=== PATIENT | female | born 1985 | race American Indian/Alaskan Native ===

== ENCOUNTER 2019-04-07 02:32 | Emergency (ER) | payer SELFPAY ==
--- NOTE | 2019-04-07 03:09 | XRay Report ---
PROCEDURE: XR WRIST 3+V LT TECHNIQUE: 3 views of the left wrist were submitted. HISTORY: left wrist pain/injury COMPARISONS: None FINDINGS: There is no evidence of acute fracture or soft tissue injury. There is no evidence of arthritic gale es. IMPRESSION: No acute findings. If localized wrist pain persists, repeat imaging is recommended in 7-10 days to ev aluate for occult fracture.. This document is electronically signed by Jose De Jesus Jacinto MD., April 07 2019 03:07:27 AM ET
[2019-04-07] MEDS ORDERED: IBUPROFEN PO ONE (07:12)
[2019-04-07] MEDS ORDERED: NORCO 5/325 PO ONE (07:36)
--- NOTE | 2019-04-07 07:48 | Emergency Department Report ---
ED Back Pain/Injury HPI - General Chief Complaint: Extremity Injury, Upper Stated Complaint: LT WRIST INJURY Time Seen by Provider: 04/07/19 07:11 Source: patient Limitations: No Limitations - History of Present Illness Initial Comments: Patient is a 34-year-old female who comes to the ER complaining of left wrist pain. She fell last night on an outstretched left hand. She is neurovascularly intact on assessment. Patient denies any medical problems and is on no home medications. - Related Data Previous Rx's Medication Instructions Recorded Last Taken Type traMADol [Ultram] 50 mg PO Q6HR PRN #10 tablet 04/07/19 Unknown Rx Allergies Allergy/AdvReac Type Severity Reaction Status Date / Time No Known Allergies Allergy Unverified 04/07/19 02:33 ED Review of Systems ROS: Stated complaint: LT WRIST INJURY Other details as noted in HPI Comment: All other systems reviewed and negative ED Past Medical Hx - Past Medical History Medical history: no medical history ED Back Pain Physical Exam - Exam General: Vital signs noted. No distress. Alert and acting appropriately. WDWN patient in NAD VS per RN flow sheet Alert and oriented to person, place and time. S1-S2. No S3 or S4. No systolic or diastolic murmur. No JVD. No pitting edema. Lungs clear to auscultation bilaterally anteriorly and posteriorly. Abdomen soft nontender bowel sounds x4 Moves all extremities well. Mood and affect appropriate. Radial and ulnar pulses +2. Rapid capillary refill. Mild swelling of the wrist is noted. She has full range of motion but limited by pain. Forearm and fingers are without injury. There is no other associated injury. Ulnar medial and radial nerves are intact. ED Course Vital Signs 04/07/19 04/07/19 02:33 07:34 Temperature 98.1 F Pulse Rate 65 Respiratory 18 18 Rate Blood Pressure 109/67 O2 Sat by Pulse 98 Oximetry ED Medical Decision Making - Medical Decision Making X-ray is negative for fracture. Patient has been placed in an Paco bandage with an arm sling. She is being discharged home with rest ice elevation and pain medicines. She has been told to follow up with orthopedics next week. Patient is neurovascularly intact. Vital Signs 04/07/19 04/07/19 02:33 07:34 Temperature 98.1 F Pulse Rate 65 Respiratory 18 18 Rate Blood Pressure 109/67 O2 Sat by Pulse 98 Oximetry - Differential Diagnosis ro fx rad/ulna Critical care attestation.: If time is entered above; I have spent that time in minutes in the direct care of this critically ill patient, excluding procedure time. ED Disposition Clinical Impression: Left wrist sprain, Fall from ground level Disposition: DC-01 TO HOME OR SELFCARE Is pt being admited?: No Does the pt Need Aspirin: No Condition: Stable Instructions: Wrist Injury (ED) Additional Instructions: DIET TOLERATED MEDS ORDERED TODAY IN ER FOLLOW INSTRUCTIONS ON THE BOTTLE FOLLOW UP PCP WITHIN 48 HOURS TO ENSURE YOU ARE GETTING BETTER ACTIVITY TOLERATED MOTRIN OR TYLENOL FOR PAIN OR FEVER RETURN TO THE ER FOR WORSENING SYMPTOMS NOT RELIEVED BY YOUR MEDICATIONS. follow up with Dr Figueroa next week ICE REST ELEVATE ARM PACO AND SLING FOR COMFORT Referrals: ONEIDA FIGUEROA MD [Staff Physician] - 3-5 Days Time of Disposition: 07:47
[2019-04-07 08:41] VITALS: BP 123/78
== END 2019-04-07 08:33 | disposition home or self-care (01) ==
LOC: ED 02:32
DX: S63.502A Unspecified sprain of left wrist, initial encounter (principal); W18.30XA Fall on same level, unspecified, initial encounter; Y93.89 Activity, other specified; Y92.89 Other specified places as the place of occurrence of the external cause; Y99.8 Other external cause status